=== PATIENT | female | born 1970 | race Caucasian/White ===

== ENCOUNTER 2017-05-06 17:11 | Inpatient (IN) | payer BC ==
--- NOTE | 2017-05-06 17:27 | CPEKG ---
Heart Rate: 83 RR Interval: 723 P-R Interval: 148 QRSD Interval: 94 QT Interval: 420 QTC Interval: 494 P [place]: 77 QRS [place]: 87 T Wave [place]: 77 EKG Severity - ABNORMAL ECG - EKG Impression: SINUS RHYTHM EKG Impression: RIGHT ATRIAL ABNORMALITY EKG Impression: BORDERLINE PROLONGED QT INTERVAL Electronically Signed By: Nicole Medellin 06-May-2017 23:53:00
--- NOTE | 2017-05-06 17:27 | CPEKG ---
Heart Rate: 83 RR Interval: 723 P-R Interval: 148 QRSD Interval: 94 QT Interval: 420 QTC Interval: 494 P [place]: 77 QRS [place]: 87 T Wave [place]: 77 EKG Severity - ABNORMAL ECG - EKG Impression: SINUS RHYTHM EKG Impression: RIGHT ATRIAL ABNORMALITY EKG Impression: BORDERLINE PROLONGED QT INTERVAL Electronically Signed By: Nicole Medellin 06-May-2017 23:53:00
[2017-05-06] MEDS ORDERED: NS 1,000 ML IV ONE ×2 (17:41)
--- NOTE | 2017-05-06 17:45 | EDPHY ---
HPI/HX/ROS/PE/MDM Narrative: CHIEF COMPLAINT: Nausea, vomiting, diarrhea, near syncope HISTORY OF PRESENT ILLNESS: The patient is a 46 y/o female arriving with her parents complaining of nausea, vomiting, diarrhea, sweating, and profound weakness and near-syncope onset today. She had a light period last week and then experienced heavy bleeding starting again a few days ago and discontinued her control pills. She flew into the state today from [place] and met with her parents. This afternoon, she began experiencing lower abdominal pain, profuse diarrhea, and vomiting accompanied by profound weakness and slight shortness of breath. She reports her diarrhea was brown and green in color and watery in appearance. When she arrived at the ED, triage reports she was pale, cool, and diaphoretic with a blood pressure in the 60s and a heart rate of 74. They describe a near syncopal episode while she was in the waiting room. She denies chest pain, or other associated symptoms. She reports traveling to [facility] and [place] this summer. She denies sexual activity this month. No fever, chills, chest pain, palpitations, urinary complaints, headache. REVIEW OF SYSTEMS: Aside from elements discussed in the HPI, a comprehensive 10-point review of systems was reviewed and is negative. PAST MEDICAL HISTORY: Denies SOCIAL HISTORY: Parents and brother at bedside, from [place], here on vacation VITAL SIGNS: Reviewed by me GENERAL: Pale, ill-appearing, thin female. Obvious discomfort with lower abdominal pain. HEENT: Atraumatic. Eyes: No icterus, no injection. Mouth: Dry mucous membranes. No erythema or lesions. Neck: supple with no adenopathy. LUNGS: Clear to auscultation bilaterally, no wheezes, rhonchi or rales. CARDIAC: Regular rate and rhythm, no rubs, murmurs or gallops. ABDOMEN: Tenderness to palpation of bilateral lower abdomen/adnexal worse on the left. Soft, nondistended, no guarding or rebound BACK: No CVA tenderness. EXTREMITIES: No trauma. No edema. Range of motion is normal throughout. NEURO: Alert and oriented, grossly nonfocal. SKIN: Cool to the touch, rodgers, no rash. PSYCHIATRIC: Normal mentation, no agitation. Portions of this note were transcribed by a faculty i on call medical assistant. I personally performed a history, physical exam, medical decision making, and confirmed accuracy of information the transcribed note. ED Course: Procedure: Focused abdominal ultrasound for hypotension. Limited abdominal ultrasound for hypotension and abnormal periods. Concern for potential ectopic . 1) The right upper quadrant was visualized and was found to be positive for intraperitoneal fluid. 2) The left upper quadrant was visualized and found to be positive for intraperitoneal fluid. The study was felt to be positive for free intraperitoneal fluid. Limited pelvic ultrasound was conducted for abnormal periods, hypotension, evaluate for intra-abdominal hemorrhage. The bladder was visualized and did reveal a an anechoic area outside of the adjacent urinary bladder. Bladder was distended with urine. Fast exam was felt to be positive for free intra-abdominal fluid Procedure was performed by myself. 12-LEAD EKG: Please see the full report in [facility]. My interpretation: Normal sinus rhythm. The patient is a 46 y/o female complaining of vomiting, diarrhea, abdominal pain , and profound weakness onset this afternoon. 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 She flew into [place] today from [place] and this afternoon began experiencing diarrhea, vomiting, weakness, and abdominal pain. In triage she was near syncopal. Given her profound hypotension the and paradoxical the lack of tachycardia, bedside ultrasound was performed to evaluate for potential intra-abdominal hemorrhage. This was positive for free intra-abdominal fluid. The i-STAT was obtained. Patient actually has a significantly elevated hemoglobin and hematocrit presumably secondary to profound dehydration. 2 IVs were placed in the patient received IV fluids. Patient's test was negative. Patient does meet criteria for sepsis. 1755: Due to the patient's labs and condition she meets the criteria for severe sepsis. Severe Sepsis/Septic Shock Care Note The patient presents to the ED with diarrhea identified as an acute infection. The patient did have evidence of end-organ dysfunction and met criteria for severe sepsis. This condition was identified by myself at 755. The patients vital signs are blood pressure 89/68, 75, 24, 100%, afebrile. The patient has a venous lactic acid performed within 3 hours of the identification of severe sepsis which was found to be 4.8. The patient has blood cultures drawn and received Zosyn IV, per the severe sepsis treatment protocol. The patient also met criteria for septic shock because of systolic blood pressure <90 and a lactic acid greater than 4.0. The patient received a 30 mL/ kg bolus within 3 hours. After this intervention, the patients hypotension did improve. Focused examination demonstrated 89/68, heart rate 75, respiratory rate 24, sinus rhythm with a normal rate, clear lungs, slow capillary refill, weak peripheral pulses, cool skin. Following fluid resuscitation and evaluation the emergency department, the patient's vital signs improved. The patient was transferred to the [facility] surg under the care of Dr. Yimi Almonte. Study: Ultrasound of the: pelvis Indication: free fluid on FAST the, severe hypertension Results: US scan of the body parts was obtained. The results of the study are ovarian cyst on the left ovary and free fluid without clear cause. The study was read by the radiologist, Dr. Chester. I viewed the images myself on the PACS system. Study: CT of the abdomen Indication: free fluid, elevated lipase, diarrhea Results: CT scan of the body parts was obtained. The results of the study are some diverticulosis, chronic enteric process, free fluid. The study was read by the radiologist, Dr. Chester. I viewed the images myself on the PACS system. 1945: Patient was admitted to the hospitalist service. She was in much improved condition at the time of admission. Alert, conversant, improved color , blood pressure 128/64. She provided a stool sample prior to admission and antibiotics. MDM: Differential diagnoses for the patient's symptom complex was considered including but not limited to ectopic with hemorrhagic shock, hemorrhagic ovarian cyst with shock, profound dehydration secondary to diarrhea , septic shock, pancreatitis, bacterial dysentery, the food poisoning, gastroenteritis, sepsis. Critical care time spent by Dr. Vignesh patrick exclusively with this patient was 35 minutes, exclusive of PA time and exclusive of procedures. The organ system at risk was cardiac, gastrointestinal and I gave IV fluids, antibiotic, bedside ultrasound, and admission to the hospital to prevent worsening of the patients condition. Critical care time included obtaining history, performing a physical exam, bedside monitoring of interventions, collecting and interpreting tests and discussion with consultants but not including time spent performing procedures. - Data Points Imaging Results: Imaging Impressions Pelvic/Renal Ultrasound 05/06/17 18:14 Impression: 1. 2.6-cm simple-appearing cyst left ovary. 2. Free fluid throughout the pelvis which is nonspecific. Results called and discussed with Nicole Medellin MD, at 1949 hours [address] 05/06/17 19:16 Impression: Findings suggesting a diffuse enteritis with bowel wall thickening and fluid distention of the loops of small bowel throughout the abdomen and pelvis and mild adjacent stranding in the mesentery. Moderate free fluid in the pelvis. No evidence for free intraperitoneal air. Mild diverticulosis sigmoid colon. Results called and discussed with Nicole Medellin MD, at 2032 hours 06 May 2017. Imaging: Discussed imaging studies w/ faculty i on call medical assistant Radiologist Laboratory Results: Laboratory Results 05/06/17 17:30 05/06/17 17:30 05/06/17 05/06/17 05/06/17 18:26 17:30 17:30 WBC RBC Hgb POC Hgb Hct POC Hct MCV MCH MCHC RDW Plt Count MPV Neut % (Auto) Lymph % (Auto) [place] % (Auto) Eos % (Auto) Baso % (Auto) Nucleat RBC Rel Count Absolute Neuts (auto) Absolute Lymphs (auto) Absolute Monos (auto) Absolute Eos (auto) Absolute Basos (auto) Absolute Nucleated RBC Immature Gran % Immature Gran # PT 14.0 SEC SEC (12.0-15.0) INR 1.09 (0.83-1.16) APTT 23.1 SEC SEC (23.0-38.0) VBG Lactic Acid 2.5 mmol/L H D mmol/L (0.7-2.1) POC Sodium Sodium POC Potassium Potassium POC Chloride Chloride Carbon Dioxide Anion Gap POC BUN BUN Creatinine POC Creatinine Estimated GFR Glucose POC Glucose Calcium Total Bilirubin Conjugated Bilirubin Unconjugated Bilirubin AST ALT Alkaline Phosphatase Total Protein Albumin Lipase Beta HCG, Qual NEGATIVE 05/06/17 05/06/17 05/06/17 17:30 17:30 17:30 WBC 25.74 10^3/uL H 10^3/uL (3.80-9.50) RBC 6.19 10^6/uL H 10^6/uL (4.18-5.33) Hgb 18.6 g/dL H g/dL (12.6-16.3) POC Hgb Hct 56.1 % H % (38.0-47.0) POC Hct MCV 90.6 fL fL (81.5-99.8) MCH 30.0 pg pg (27.9-34.1) MCHC 33.2 g/dL g/dL (32.4-36.7) RDW 12.7 % % (11.5-15.2) Plt Count 403 10^3/uL H 10^3/uL (150-400) MPV 10.7 fL fL (8.7-11.7) Neut % (Auto) 78.2 % H % (39.3-74.2) Lymph % (Auto) 15.4 % % (15.0-45.0) [place] % (Auto) 4.4 % L % (4.5-13.0) Eos % (Auto) 1.0 % % (0.6-7.6) Baso % (Auto) 0.3 % % (0.3-1.7) Nucleat RBC Rel Count 0.0 % % (0.0-0.2) Absolute Neuts (auto) 20.15 10^3/uL H 10^3/uL (1.70-6.50) Absolute Lymphs (auto) 3.96 10^3/uL H 10^3/uL (1.00-3.00) Absolute Monos (auto) 1.12 10^3/uL H 10^3/uL (0.30-0.80) Absolute Eos (auto) 0.25 10^3/uL 10^3/uL (0.03-0.40) Absolute Basos (auto) 0.09 10^3/uL 10^3/uL (0.02-0.10) Absolute Nucleated RBC 0.00 10^3/uL 10^3/uL (0-0.01) Immature Gran % 0.7 % % (0.0-1.1) Immature Gran # 0.17 10^3/uL H 10^3/uL (0.00-0.10) PT INR APTT VBG Lactic Acid 4.6 mmol/L H mmol/L (0.7-2.1) POC Sodium Sodium 136 mEq/L mEq/L (134-144) POC Potassium Potassium 3.6 mEq/L mEq/L (3.5-5.2) POC Chloride Chloride 99 mEq/L mEq/L (97-110) Carbon Dioxide 22 mEq/l mEq/l (22-31) Anion Gap 15 mEq/L mEq/L (8-16) POC BUN BUN 11 mg/dL mg/dL (7-23) Creatinine 1.2 mg/dL H mg/dL (0.6-1.0) POC Creatinine Estimated GFR 49 Glucose 132 mg/dL H mg/dL (70-100) POC Glucose Calcium 9.4 mg/dL mg/dL (8.5-10.4) Total Bilirubin 0.7 mg/dL mg/dL (0.1-1.4) Conjugated Bilirubin 0.3 mg/dL mg/dL (0.0-0.5) Unconjugated Bilirubin 0.4 mg/dL mg/dL (0.0-1.1) AST 35 IU/L IU/L (14-46) ALT 39 IU/L IU/L (9-52) Alkaline Phosphatase 94 IU/L IU/L (38-126) Total Protein 7.3 g/dL g/dL (6.3-8.2) Albumin 4.3 g/dL g/dL (3.5-5.0) Lipase 7693 IU/L H IU/L (23-300) Beta HCG, Qual 05/06/17 17:29 WBC RBC Hgb POC Hgb 19.7 gm/dL H gm/dL (12.6-16.3) Hct POC Hct 58 % H % (38-47) MCV MCH MCHC RDW Plt Count MPV Neut % (Auto) Lymph % (Auto) [place] % (Auto) Eos % (Auto) Baso % (Auto) Nucleat RBC Rel Count Absolute Neuts (auto) Absolute Lymphs (auto) Absolute Monos (auto) Absolute Eos (auto) Absolute Basos (auto) Absolute Nucleated RBC Immature Gran % Immature Gran # PT INR APTT VBG Lactic Acid POC Sodium 141 mEq/L mEq/L (134-144) Sodium POC Potassium 3.4 mEq/L mEq/L (3.3-5.0) Potassium POC Chloride 99 mEq/L mEq/L (97-110) Chloride Carbon Dioxide Anion Gap POC BUN 11 mg/dL mg/dL (7-23) BUN Creatinine POC Creatinine 1.2 mg/dL H mg/dL (0.6-1.0) Estimated GFR Glucose POC Glucose 140 mg/dL H mg/dL (70-100) Calcium Total Bilirubin Conjugated Bilirubin Unconjugated Bilirubin AST ALT Alkaline Phosphatase Total Protein Albumin Lipase Beta HCG, Qual Medications Given: Piperacillin/Tazobactam/Dextrose (Zosyn 3.375 Gm (Premix)) 50 mls @ 100 mls/hr IV Q6HRS TARA PRN Reason: Protocol Stop: 06/06/17 00:00 Last Admin: 05/07/17 00:03 Dose: 50 mls Sodium Chloride (Ns) 1,000 mls @ 150 mls/hr IV CONT TARA Stop: 11/02/17 22:59 Last Admin: 05/07/17 00:03 Dose: 1,000 mls Discontinued Medications Sodium Chloride (Ns) 1,000 mls @ 0 mls/hr IV ONCE ONE; Wide Open PRN Reason: Protocol Stop: 05/06/17 17:42 Last Admin: 05/06/17 17:43 Dose: 1,000 mls Sodium Chloride (Ns) 1,000 mls @ 0 mls/hr IV ONCE ONE; Wide Open PRN Reason: Protocol Stop: 05/06/17 17:42 Last Admin: 05/06/17 17:43 Dose: 1,000 mls Sodium Chloride (Ns) 2,200 mls @ 4,400 mls/hr 30 ml/kg infuse over 30 min ( 2200 ml) IV EDNOW ONE PRN Reason: Protocol Stop: 05/06/17 18:24 Last Admin: 05/06/17 18:07 Dose: 2,200 mls Piperacillin/Tazobactam/Dextrose (Zosyn (Premix)) 100 mls @ 200 mls/hr IV EDNOW ONE PRN Reason: Protocol Stop: 05/06/17 20:29 Last Admin: 05/06/17 20:17 Dose: 100 mls Point of Care Test Results: 05/06/17 17:29 POC Sodium 141 POC Potassium 3.4 POC Chloride 99 POC BUN 11 POC Creatinine 1.2 H POC Glucose 140 H General Initial Vital Signs: Initial Vital Signs Temperature (C) 36.2 C 05/06/17 17:39 Heart Rate 73 05/06/17 17:39 Respiratory Rate 18 05/06/17 17:39 Blood Pressure 66/51 L 05/06/17 17:39 O2 Sat (%) 95 05/06/17 17:39 O2 Delivery Mode Room Air Allergies/Adverse Reactions: No Known Allergies Allergy (Unverified 05/06/17 17:28) Home Medications: Medication Instructions Recorded LEVETIRACETAM [Keppra 750 mg] 750 mg PO BID 05/06/17 Multivitamins [Multivitamin (*)] 1 each PO HS 05/06/17 Norgestimate-Ethinyl Estradiol 1 each PO DAILY 05/06/17 [Tri-Sprintec Tablet] Departure - Departure Disposition: [facility] Inpatient Acute Clinical Impression: Elevated lipase, Septic shock, Intra-abdominal free fluid, Dehydration, Acute gastroenteritis Abdominal pain Qualifiers: Abdominal location: generalized Qualified Code(s): R10.84 - Generalized abdominal pain Diarrhea Qualifiers: Diarrhea type: unspecified type Qualified Code(s): R19.7 - Diarrhea, unspecified Hypotension Qualifiers: Hypotension type: other hypotension type Qualified Code(s): I95.89 - Other hypotension Condition: Serious Report Scribed for: Nicole Medellin Report Scribed by: Amanda Mccallum Date of Report: 05/06/17 Time of Report: 19:37
[2017-05-06 17:47] LABS: PLATELET COUNT 403 10^3/uL (150-400)
[2017-05-06] MEDS ORDERED: NS 2,200 ML IV ONE (17:55)
[2017-05-06 18:08] LABS: INR 1.09 (0.83-1.16)
[2017-05-06] MEDS ORDERED: IOPAMIDOL (ISOVUE-300) 100 ML BTL ONE ×2 (19:20→19:56)
[2017-05-06 19:50] LABS: PLATELET COUNT 250 10^3/uL (150-400)
[2017-05-06] MEDS ORDERED: PIPERACILLIN/TAZO 4.5 GM/DEX 100 ML IV ONE (20:00)
[2017-05-06 20:36] VITALS: RESP 16
[2017-05-06] MEDS ORDERED: HYDROmorphONE/DILAUDID 1 MG/ML INJ IVP PRN (22:51)
[2017-05-06] MEDS ORDERED: ONDANSETRON 4 MG/2 ML VIAL IVP PRN (22:51)
[2017-05-06] MEDS ORDERED: LORazepam 2 MG/ML INJ IVP PRN (22:51)
[2017-05-06] MEDS ORDERED: ONDANSETRON DISINTEGRATING 4 MG TAB PO PRN (22:51)
[2017-05-06] MEDS ORDERED: NS 1,000 ML IV SCH (23:00)
[2017-05-07] MEDS ORDERED: PIPERACILLIN/TAZO 3.375 GM/DEX 50 ML IV SCH
--- NOTE | 2017-05-07 04:55 | GHP ---
[f rep st] HISTORY AND PHYSICAL DATE OF ADMISSION: 05/06/2017 SOURCE: Patient provides history, appears reliable. Her electronic medical record was reviewed and case discussed with ED provider. CHIEF COMPLAINT: Nausea, vomiting, diarrhea, and abdominal pain. HISTORY OF PRESENT ILLNESS: This is a very pleasant 46-year-old female, who presents to the emergency department today with complaints of 1-day history of diffuse abdominal cramping and development of nausea, vomiting, and diarrhea today. Patient has just flown in from [place] to visit on a trip with her family. Patient suddenly developed some abdominal cramping in her mid abdomen and subsequently followed by profuse watery diarrhea. Patient had multiple episodes. She denies any melena, hematochezia. She also did have several episodes of nausea, vomiting without any hematemesis. Patient reports travel over the summer to [place] and [place]. Patient denies any known sick contacts. She does endorse some chills and sweats. After multiple episodes of diarrhea, patient began to feel generally weak, lightheaded, and had near-syncopal episode. Patient felt quite dehydrated and progressively fatigued. The family brought her to the emergency department for evaluation. REVIEW OF SYSTEMS: GENERAL: Patient without complaints of fevers, but does report sweating and chills. SKIN: Patient denies any rashes or sores. ENT: Patient reports a little bit of sore throat after vomiting. No rhinorrhea or nasal congestion. EYES: Patient denies any acute changes in vision or ocular pain. CV: Patient denies any chest pain, palpitations. RESPIRATORY: Patient denies any shortness of breath or cough. GI: See HPI. : Patient denies any dysuria, hematuria. TELETYPE OR VARITYPE KEYBOARD OPERATOR: Patient does report a recent history of irregular periods despite being on oral contraceptive pill. 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 Suspect that it could be related to perimenopausal symptoms. MUSCULOSKELETAL: Patient denies any joint pain or myalgias. NEURO: Patient reports initially with onset of symptoms, she has some numbness and tingling in her fingertips, but otherwise denies any focal weakness, just generalized weakness and no headache. Remainder review of systems negative except as above. ALLERGIES: No known drug allergies. HOME MEDICATIONS: Multivitamin, Tri Sprintec, Keppra. PAST MEDICAL HISTORY: Significant for seizure disorder. PAST SURGICAL HISTORY: Significant for temporal lobectomy. FAMILY HISTORY: Patient has a maternal aunt with history of coronary artery disease and history of NC. Dementia in maternal grandparents, as well as stomach and colon cancer. Other cancers on the paternal side of the family. SOCIAL HISTORY: Patient is visiting from [place]. She does drink occasionally, but not on a frequent basis. No tobacco or drug use reported. CODE STATUS: Full. PHYSICAL EXAMINATION: VITAL SIGNS: Initial vitals upon presentation, blood pressure 66/51, heart rate 73, respiratory rate 18, O2 sat 95% on room air. Vitals at time of interview, blood pressure 108/60, heart rate 68, respiratory rate 16, O2 sat 95, temperature 36.4. GENERAL: No acute distress. Pleasant adult female, appears fatigued and acutely ill, but nontoxic. Slightly flushed. Is awake and pleasant. HEAD: Normocephalic, atraumatic. EYES: Extraocular muscles are grossly intact. No scleral icterus or conjunctival injection. ENT: Mucous membranes appear slightly dry. No pharyngeal erythema or exudates. NECK: Supple. Trachea midline. CV: Regular rate and rhythm. No murmurs, rubs, or gallops appreciated. ABDOMEN: Minimally distended, but soft. Patient has diffuse tenderness to palpation, but no rebound or guarding or masses appreciated. : No suprapubic tenderness to palpation. No Gandhi in place. MUSCULOSKELETAL: Patient with some generalized fatigue and weakness , but overall strength is intact and symmetric. NEURO: Grossly nonfocal. No facial drooping. Patient is awake, alert, and orient x3. She moves all her extremities with equal strength. PSYCH: Patient does appear to be a little bit anxious, but she is otherwise pleasant. Thought process, content, and questions are appropriate. LABORATORY STUDIES: WBC initially 25.7, H and H were 18.6 and 56.1, MCV 90.6, platelet count 403, neutrophil percent 78.2. Repeated labs in the emergency department, WBC is 21,000, H and H are 14.4 and 42.7, MCV of 89.7, platelet count is 250, with a neutrophil count of 86.4%. PT is 14.0, INR 1.09, PTT is 23.1. VBG, lactic acid initially was 4.6, repeated down to 2.5, and most recent 1.4, normalized. CMP shows sodium 136, potassium 3.6, chloride is 99, CO2 is 22, BUN 11, creatinine is 1.2, GFR 49, glucose 132, calcium 9.4, total bilirubin 0.7, ALT 39, AST 35, alk phos 94, total protein 7.3, albumin 4.3, lipase 7693. Beta HCG is negative. Urine with specific gravity of 1.017, pH of 50, 1+ protein, 1+ ketones, 1+ blood, urine WBCs 10-15, trace bacteria, hyaline casts 50-182, mucus 4+. Stool blood screen is positive. O and P, C difficile, and culture is pending. Blood cultures x2 pending. EKG reviewed myself showing sinus rhythm in the 80s, QTc 494. CT abdomen and pelvis suggesting diffuse enteritis with bowel wall thickening and fluid distention in the loops of small bowel throughout the abdomen and pelvis. Mild adjacent stranding in the mesentery. Moderate free fluid in the pelvis. No evidence of free intraperitoneal air. Mild diverticulosis in the sigmoid colon. Pelvic ultrasound showing 2.6 cm simple-appearing cyst in the left ovary, free fluid through the pelvis that is nonspecific. ASSESSMENT AND PLAN: This is a pleasant 46-year-old female presents with acute onset of nausea, vomiting, diarrhea. 1. Enteritis. Patient had been started on Zosyn upon arrival from the ER. Consider, once patient's nausea and vomiting is improved, to transition to Flagyl and Cipro. 2. Sepsis. Patient qualifies with leukocytosis and episodes of tachypnea with elevated lactic acid. Patient's symptoms have improved following administration of IV fluids. Will plan to continue to monitor. Blood cultures have been obtained. Patient started on Zosyn as noted above. 3. Hypotension, secondary to dehydration and GI losses. Blood pressures have improved to low normal at this time, following several liters of IV fluid. 4. Acute kidney injury secondary to hypovolemia in setting of acute nausea, vomiting, and diarrhea. Continue with IV fluid resuscitation. Repeat in the morning. 5. Dehydration. IV fluids as noted above. 6. Nausea, vomiting, improved status post antiemetics. Continue to monitor. 7. Elevated lipase with possibility for pancreatitis. Patient without significant epigastric abdominal complaints. Rise could be possibly related to nausea, vomiting, and acute GI illness, but will plan to repeat a lipase, and as patient currently without symptoms, advance diet with some sips of clears. 8. Hyperglycemia. Patient without history of diabetes. This is a nonfasting level. Plan to repeat in the morning number. 9. Thrombocytosis, resolved after IV fluid hydration. Likely component reactive and dehydration. 10. Polycythemia secondary to dehydration and hemoconcentration. Will continue to monitor, has normalized. 11. Fluid, electrolyte, nutrition. Aggressive IV fluid hydration. Advance diet as patient is able to tolerate with some sips overnight. Electrolyte replacement p.r.n. 12. Prophylaxis. SCDs, on Lovenox. 13. Disposition. Patient admitted to inpatient status on the medical floor given severity of her symptoms, her sepsis criteria, and need to monitor for her cultures. 14. Code status is full. /[id number]/MODL MTDD
[2017-05-07 05:53] LABS: PLATELET COUNT 253 10^3/uL (150-400)
[2017-05-07 07:39] VITALS: O2SAT 96
--- NOTE | 2017-05-07 09:41 | PDMN ---
Medical Necessity Medical necessity: M170 gastroenteritis- Enteritis with N/V/D/ persistent dehydration - with sepsis, - leukocytosis, tachypnea, elevated lactic acid, hypotensive, - Pt will be NPO, elevated Lipase- cont. to monitor ongoing IV fluids, yl
[2017-05-07 11:14] VITALS: BP 114/54; PULSE 72; TEMP 98.4
--- NOTE | 2017-05-07 11:30 | ASMTCMCOM ---
CM Note CM Note Notes: Spoke w/RN, anticipate will dc independent when medically stable. CM available for any changes. Date Signed: 05/07/2017 11:30 AM Electronically Signed By:Rosette Sotelo RN
--- NOTE | 2017-05-07 16:32 | ASDISCHSUM ---
Discharge Information Plan Status:Home with No Needs Medically Cleared to Leave: Discharge Date:05/07/2017 04:06 PM CM D/C Disposition:Home, Routine, Self-Care ADT D/C Disposition:Home, Routine, Self-Care Projected Discharge Date:05/07/2017 04:06 PM Transportation at D/C:Friend Discharge Delay Reason: Follow-Up Date:05/07/2017 04:06 PM Discharge Slot: Final Diagnosis: Placement Information Patient Contact Information Contact Name:MARIA E Relationship:Mother Address: Work Phone: City: [facility] Phone: State/[employer] Code: Email: Financial Information Financial Class:HMO and PPO Plans Primary Plan Desc: OUT OF STATE INDEMTY Primary Plan Number:[id number] Secondary Plan Desc: Secondary Plan Number: Assessment Information BC CM Progress Note CM Note CM Note Notes: Spoke w/RN, anticipate will dc independent when medically stable. CM available for any changes. Date Signed: 05/07/2017 11:30 AM Electronically Signed By:Rosette Sotelo RN Intervention Information Intervention Type:*Incorrect Registration Date of Service:05/07/2017 09:20 AM Patient Type:Observation Staff Member:SUBHA Woods, Norma Hours: Discipline: Severity: Comment:
--- NOTE | 2017-05-07 16:32 | ASDISCHSUM ---
Discharge Information Plan Status:Home with No Needs Medically Cleared to Leave: Discharge Date:05/07/2017 04:06 PM CM D/C Disposition:Home, Routine, Self-Care ADT D/C Disposition:Home, Routine, Self-Care Projected Discharge Date:05/07/2017 04:06 PM Transportation at D/C:Friend Discharge Delay Reason: Follow-Up Date:05/07/2017 04:06 PM Discharge Slot: Final Diagnosis: Placement Information Patient Contact Information Contact Name:MARIA E Relationship:Mother Address: Work Phone: City: [facility] Phone: State/[employer] Code: Email: Financial Information Financial Class:HMO and PPO Plans Primary Plan Desc: OUT OF STATE INDEMTY Primary Plan Number:[id number] Secondary Plan Desc: Secondary Plan Number: Assessment Information BC CM Progress Note CM Note CM Note Notes: Spoke w/RN, anticipate will dc independent when medically stable. CM available for any changes. Date Signed: 05/07/2017 11:30 AM Electronically Signed By:Rosette Sotelo RN Intervention Information Intervention Type:*Incorrect Registration Date of Service:05/07/2017 09:20 AM Patient Type:Observation Staff Member:SUBHA Woods, Norma Hours: Discipline: Severity: Comment:
--- NOTE | 2017-05-07 16:32 | ASDISCHSUM ---
Discharge Information Plan Status:Home with No Needs Medically Cleared to Leave: Discharge Date:05/07/2017 04:06 PM CM D/C Disposition:Home, Routine, Self-Care ADT D/C Disposition:Home, Routine, Self-Care Projected Discharge Date:05/07/2017 04:06 PM Transportation at D/C:Friend Discharge Delay Reason: Follow-Up Date:05/07/2017 04:06 PM Discharge Slot: Final Diagnosis: Placement Information Patient Contact Information Contact Name:MARIA E Relationship:Mother Address: Work Phone: City: [facility] Phone: State/[employer] Code: Email: Financial Information Financial Class:HMO and PPO Plans Primary Plan Desc: OUT OF STATE INDEMTY Primary Plan Number:[id number] Secondary Plan Desc: Secondary Plan Number: Assessment Information BC CM Progress Note CM Note CM Note Notes: Spoke w/RN, anticipate will dc independent when medically stable. CM available for any changes. Date Signed: 05/07/2017 11:30 AM Electronically Signed By:Rosette Sotelo RN Intervention Information Intervention Type:*Incorrect Registration Date of Service:05/07/2017 09:20 AM Patient Type:Observation Staff Member:SUBHA Woods, Norma Hours: Discipline: Severity: Comment:
--- NOTE | 2017-05-07 17:23 | GDS ---
[f rep st] DISCHARGE SUMMARY DIAGNOSES: 1. Hypovolemic shock. 2. Enteritis. 3. Blastocystis hominis diarrhea. 4. Anemia. 5. Acute kidney injury. 6. Dehydration. 7. Elevated lipase of unknown significance. HOSPITAL COURSE: A 46-year-old female, who presented with about 12 hours of profuse nausea, vomiting and significant diarrhea. Stool study were positive for blastocystis hominis. Informally discussed with Infectious Disease who recommended a week of Flagyl for this. Unclear if this is true pathogen , though she did have significant enteritis seen on her CT scan. I think it is reasonable to treat i n this setting. She presented with very low blood pressures, all of which have resolved with aggress rocío IV hydration. On the day of discharge, she has tolerated a full meal without any nausea, vomitin g, or return of her diarrhea. She is ambulating safely. She had a mild kidney injury. Creatinine o f 1.2 which resolved with IV fluids. It is 0.8 on discharge. She was quite erythrocythemic, likely due to hemoconcentration on her initial labs. On followup labs her hemoglobin has trended down to 11 .9. Given her normal blood pressure at this point, and lack of tachycardia, I think that this is lik shabbir her baseline, though I recommend that she follow up with her PCP. I warned her to return to the hospital immediately with any ongoing symptoms of weakness, diarrhea, nausea, vomiting, inability to tolerate p.o. She is traveling from [place] with her parents who will be staying with her in the [facility] hotel room. I think this is a safe discharge. I have warned her about the disulfiram like react ion with alcohol use and Flagyl. She improved much more rapidly than 1 would have expected given her acute presentation. BILLING: I spent more than 30 minutes on the day of discharge coordinating care. /[id number]/MODL
--- NOTE | 2017-05-07 17:23 | GDS ---
[f rep st] DISCHARGE SUMMARY DIAGNOSES: 1. Hypovolemic shock. 2. Enteritis. 3. Blastocystis hominis diarrhea. 4. Anemia. 5. Acute kidney injury. 6. Dehydration. 7. Elevated lipase of unknown significance. HOSPITAL COURSE: A 46-year-old female, who presented with about 12 hours of profuse nausea, vomiting and significant diarrhea. Stool study were positive for blastocystis hominis. Informally discussed with Infectious Disease who recommended a week of Flagyl for this. Unclear if this is true pathogen , though she did have significant enteritis seen on her CT scan. I think it is reasonable to treat i n this setting. She presented with very low blood pressures, all of which have resolved with aggress rocío IV hydration. On the day of discharge, she has tolerated a full meal without any nausea, vomitin g, or return of her diarrhea. She is ambulating safely. She had a mild kidney injury. Creatinine o f 1.2 which resolved with IV fluids. It is 0.8 on discharge. She was quite erythrocythemic, likely due to hemoconcentration on her initial labs. On followup labs her hemoglobin has trended down to 11 .9. Given her normal blood pressure at this point, and lack of tachycardia, I think that this is lik shabbir her baseline, though I recommend that she follow up with her PCP. I warned her to return to the hospital immediately with any ongoing symptoms of weakness, diarrhea, nausea, vomiting, inability to tolerate p.o. She is traveling from [place] with her parents who will be staying with her in the [facility] hotel room. I think this is a safe discharge. I have warned her about the disulfiram like react ion with alcohol use and Flagyl. She improved much more rapidly than 1 would have expected given her acute presentation. BILLING: I spent more than 30 minutes on the day of discharge coordinating care. /[id number]/MODL
--- NOTE | 2017-05-13 21:16 | PQFORM ---
PHYSICIAN QUERY FORM Needs Your Response This query form is being sent to you to assure this patient record is coded properly. Please respond to the question below: HUMAN RESOURCE INTERN QUESTION: Dr Garcia Sepsis was mentioned in the patients ED report, the H/p and in progress notes but not mentioned in the Discharge Summary. Please clarify if this patient had __x_ Sepsis ___ Severe Sepsis ___ Unable to determine ___ Other (Please Indicate : ) Thank You Rosalind ZUNIGA Rail Tractor Operator INSTRUCTIONS FOR RESPONSE: Answer question by clicking on the "Edit Document" button. Move cursor to area below the stars. When complete, hit "Save." Click on the "Sign" button, then click "Sign" again. Type in your PIN and hit "Enter." MTDD
--- NOTE | 2017-05-13 21:16 | PQFORM ---
PHYSICIAN QUERY FORM Needs Your Response This query form is being sent to you to assure this patient record is coded properly. Please respond to the question below: TRAIN STARTER QUESTION: Dr Garcia Sepsis was mentioned in the patients ED report, the H/p and in progress notes but not mentioned in the Discharge Summary. Please clarify if this patient had __x_ Sepsis ___ Severe Sepsis ___ Unable to determine ___ Other (Please Indicate : ) Thank You Rosalind ZUNIGA Pipe Coverer INSTRUCTIONS FOR RESPONSE: Answer question by clicking on the "Edit Document" button. Move cursor to area below the stars. When complete, hit "Save." Click on the "Sign" button, then click "Sign" again. Type in your PIN and hit "Enter." MTDD
--- NOTE | 2017-05-13 21:16 | PQFORM ---
PHYSICIAN QUERY FORM Needs Your Response This query form is being sent to you to assure this patient record is coded properly. Please respond to the question below: PROPERTY MANAGEMENT SPECIALIST QUESTION: Dr Garcia Sepsis was mentioned in the patients ED report, the H/p and in progress notes but not mentioned in the Discharge Summary. Please clarify if this patient had __x_ Sepsis ___ Severe Sepsis ___ Unable to determine ___ Other (Please Indicate : ) Thank You Rosalind ZUNIGA Carton Catcher INSTRUCTIONS FOR RESPONSE: Answer question by clicking on the "Edit Document" button. Move cursor to area below the stars. When complete, hit "Save." Click on the "Sign" button, then click "Sign" again. Type in your PIN and hit "Enter." MTDD
== END 2017-05-07 16:06 | disposition home or self-care (01) | DRG 871 ==
LOC: OBSVTOIN 19:34 → F3E 22:20
PROVIDERS: ADMIT Family Medicine; ATTEND Family Medicine
DX: A41.9 Sepsis, unspecified organism (principal); A07.9 Protozoal intestinal disease, unspecified; N17.9 Acute kidney failure, unspecified; R57.1 Hypovolemic shock; R73.9 Hyperglycemia, unspecified
CPT/HCPCS: 82947-QW; 96365; J2543; Q9967